=== PATIENT | male | born 1950 | race Caucasian/White ===

== ENCOUNTER 2021-07-13 14:53 | Inpatient (IN) | payer MEDICARE ==
[2021-07-13 15:28] LABS: #Eosinphils 0.1 10x3/uL (0.0-0.5); #Monocytes 1.4 10x3/uL (0.0-1.1); #Neutrophils 6.8 10x3/uL (1.5-8.4); %Basophils 0.2 % (0.0-2.0); %Eosinophils 0.5 % (0.0-6.0); %Lymphocytes 13.2 % (18.0-47.0); %Monocytes 14.8 % (0.0-10.0); %Neutrophils 71.1 % (40.0-75.0); Hemoglobin 13.6 g/dL (13.5-17.5); Mean Corpuscular Hemoglobin 30.7 pg (27.0-33.0); Mean Corpuscular Volume 95.9 fl (81.2-95.1); Mean Platelet Volume 10.5 fl (7.4-10.4); Platelet Count 175 10x3/uL (150-450); RBC Distribution Width 12.6 % (11.5-14.5); Red Blood Cell (RBC) Count 4.43 10x6/uL (4.32-5.72); White Blood Cell (WBC) Count 9.6 10x3/uL (3.5-10.5)
[2021-07-13 15:42] LABS: Acetaminophen Less than 6.0 mcg/mL (10.0-30.0); Alcohol Less than 10 mg/dL (Less than 10); Salicylate Less than 8.0 mg/dL (15.0-30.0)
[2021-07-13 15:44] LABS: ALT (SGPT) 26 U/L (8-55); AST (SGOT) 33 U/L (5-34); Albumin 4.1 g/dL (3.4-4.8); Alkaline Phosphatase 91 U/L (40-110); Anion Gap 13 mmol/L (10-20); BUN (Urea Nitrogen) 25 mg/dL (8.4-25.7); Bilirubin, Total 1.6 mg/dL (0.2-1.2); Calc. Creatinine Clearance 0 mL/min (70-130); Calcium 9.9 mg/dL (7.8-10.44); Carbon Dioxide 27 mmol/L (23-31); Chloride 105 mmol/L (98-107); Globulin 3.1 g/dL (2.4-3.5); Glucose 83 mg/dL (83-110); Potassium 3.9 mmol/L (3.5-5.1); Protein, Total 7.2 g/dL (5.8-8.1); Sodium 141 mmol/L (136-145)
[2021-07-13 16:32] LABS: Bilirubin Neg (Negative); Blood, Urine Negative (Negative); Clarity Clear (Clear); Glucose, Urine (Dipstick) Normal (Negative); Ketone, Urine 15 mg/dL (Negative); Leukocyte Negative (Negative); Nitrite Negative (Negative); Protein, Urine (Dipstick) 15 mg/dl (Neg-Trace); Urobilinogen Normal mg/dL (Less than 2)
[2021-07-13 16:41] LABS: Amphetamine Not Detected (NotDetected); Barbiturates Screen Not Detected (NotDetected); Benzodiazepine Screen Detected (NotDetected); Cocaine Metabolite Screen Not Detected (NotDetected); Methadone Not Detected (NotDetected); Methamphetamine Not Detected (NotDetected); Opiate Screen Not Detected (NotDetected); Oxycodone Screen Not Detected (NotDetected); Phencyclidine (PCP) Not Detected (NotDetected); THC/Cannabinoid Screen Not Detected (NotDetected); Tricyclic Screen Not Detected (NotDetected)
[2021-07-13 17:13] LABS: SARS-CoV-2 NAA Rapid Test Not Detected (NotDetected)
[2021-07-13] MEDS ORDERED: Lorazepam 2 MG/ML VIAL ONE (20:03)
[2021-07-14 01:04] VITALS: BMI 29.5
[2021-07-14] MEDS ORDERED: Melatonin 3 MG TAB PO SCH (01:45)
[2021-07-14] MEDS: Sodium Chloride 0.9% 1,000 ML IV SCH ×2 (01:48→17:11)
[2021-07-14] MEDS: DULoxetine 30 MG CAP PO SCH (08:48)
[2021-07-14] MEDS: Aspirin 81 mg Enteric Coated Tablet PO SCH (08:48)
[2021-07-14] MEDS: Enoxaparin Sodium 40 MG/0.4 ML SYRINGE SC SCH (08:48)
[2021-07-14] MEDS ORDERED: Oxybutynin ER 5 MG TAB PO SCH (09:00)
[2021-07-14] MEDS ORDERED: PIMAVANSERIN TARTRATE 34 MG PO SCH (09:00)
[2021-07-14] MEDS: Midodrine HCl 2.5 MG TAB PO SCH (14:13)
[2021-07-14] MEDS ORDERED: Haloperidol Lactate 5 MG/ML VIAL IM SCH (19:15)
[2021-07-14] MEDS ORDERED: Midodrine HCl 2.5 MG TAB PO SCH (21:00)
[2021-07-15] MEDS: Melatonin 3 MG TAB PO SCH ×2 (00:33→22:53)
[2021-07-15] MEDS ORDERED: Acetaminophen 500 MG TAB PO SCH (02:00)
[2021-07-15] MEDS: Midodrine HCl 2.5 MG TAB PO SCH ×2 (05:25→09:08)
[2021-07-15 07:39] LABS: #Eosinphils 0.1 10x3/uL (0.0-0.5); #Monocytes 1.3 10x3/uL (0.0-1.1); #Neutrophils 6.1 10x3/uL (1.5-8.4); %Basophils 0.3 % (0.0-2.0); %Eosinophils 1.3 % (0.0-6.0); %Lymphocytes 12.2 % (18.0-47.0); %Monocytes 14.6 % (0.0-10.0); %Neutrophils 71.3 % (40.0-75.0); Hemoglobin 15.3 g/dL (13.5-17.5); Mean Corpuscular HGB CONC 32.6 g/dL (32.0-36.0); Mean Corpuscular Hemoglobin 30.6 pg (27.0-33.0); Mean Platelet Volume 10.8 fl (7.4-10.4); Platelet Count 172 10x3/uL (150-450); RBC Distribution Width 12.2 % (11.5-14.5); White Blood Cell (WBC) Count 8.6 10x3/uL (3.5-10.5)
[2021-07-15 08:08] LABS: ALT (SGPT) 28 U/L (8-55); AST (SGOT) 41 U/L (5-34); Albumin 4.1 g/dL (3.4-4.8); Alkaline Phosphatase 94 U/L (40-110); Anion Gap 15 mmol/L (10-20); BUN (Urea Nitrogen) 15 mg/dL (8.4-25.7); Bilirubin, Direct 0.6 mg/dL (0.1-0.3); Bilirubin, Total 1.5 mg/dL (0.2-1.2); Calc. Creatinine Clearance 107 mL/min (70-130); Carbon Dioxide 27 mmol/L (23-31); Chloride 104 mmol/L (98-107); Globulin 3.6 g/dL (2.4-3.5); Glucose 97 mg/dL (83-110); Protein, Total 7.7 g/dL (5.8-8.1); Sodium 142 mmol/L (136-145)
[2021-07-15] MEDS: DULoxetine 30 MG CAP PO SCH (08:59)
[2021-07-15] MEDS: Aspirin 81 mg Enteric Coated Tablet PO SCH (08:59)
[2021-07-15] MEDS: Enoxaparin Sodium 40 MG/0.4 ML SYRINGE SC SCH (08:59)
[2021-07-15] MEDS: Fish Oil 1,000 MG CAP PO SCH (09:00)
[2021-07-15] MEDS: Sodium Chloride 0.9% 1,000 ML IV SCH (13:08)
[2021-07-15] MEDS ORDERED: Labetalol HCl 100 MG/20 ML VIAL SLOW IVP PRN (14:41)
[2021-07-15] MEDS ORDERED: Losartan 25 MG TAB PO SCH (14:45)
[2021-07-15] MEDS ORDERED: Bisacodyl 5 MG TAB PO PRN (14:47)
[2021-07-15] MEDS ORDERED: Bisacodyl 10 MG SUPP PR PRN (14:47)
[2021-07-16] MEDS: Fish Oil 1,000 MG CAP PO SCH (08:26)
[2021-07-16] MEDS: Aspirin 81 mg Enteric Coated Tablet PO SCH (08:26)
[2021-07-16] MEDS: Losartan 25 MG TAB PO SCH (08:26)
[2021-07-16] MEDS: Enoxaparin Sodium 40 MG/0.4 ML SYRINGE SC SCH (08:27)
[2021-07-16] MEDS: DULoxetine 30 MG CAP PO SCH (08:27)
[2021-07-16] MEDS: Melatonin 3 MG TAB PO SCH (21:54)
[2021-07-17] MEDS: Fish Oil 1,000 MG CAP PO SCH (11:54)
[2021-07-17] MEDS: Losartan 25 MG TAB PO SCH (11:54)
[2021-07-17] MEDS: Aspirin 81 mg Enteric Coated Tablet PO SCH (11:55)
[2021-07-17] MEDS: Enoxaparin Sodium 40 MG/0.4 ML SYRINGE SC SCH (11:55)
[2021-07-17] MEDS: DULoxetine 30 MG CAP PO SCH (11:55)
[2021-07-17] MEDS: hydrALAZINE 20 MG/ML VIAL SLOW IVP PRN (17:12)
[2021-07-17] MEDS: Melatonin 3 MG TAB PO SCH (21:20)
[2021-07-18] MEDS: Enoxaparin Sodium 40 MG/0.4 ML SYRINGE SC SCH (09:23)
[2021-07-18] MEDS: Aspirin 81 mg Enteric Coated Tablet PO SCH (09:24)
[2021-07-18] MEDS: DULoxetine 30 MG CAP PO SCH (09:24)
[2021-07-18] MEDS: Losartan 25 MG TAB PO SCH (09:24)
[2021-07-18] MEDS: Fish Oil 1,000 MG CAP PO SCH (09:24)
[2021-07-18 12:08] VITALS: BP 181/84; TEMP 98.7
[2021-07-18] MEDS: hydrALAZINE 20 MG/ML VIAL SLOW IVP PRN (12:17)
[2021-07-18] MEDS ORDERED: Acetaminophen 325 MG TAB PO PRN (12:27)
== END 2021-07-18 21:15 | DRG 56 ==
LOC: CSHERS 14:53 → CSHTELE 23:27 → OBSVTOIN 07-15 10:55
PROVIDERS: ADMIT Family Medicine; ATTEND Family Medicine
DX: G20 Parkinson's disease (principal); G92.9 Unspecified toxic encephalopathy; F02.81 Dementia in other diseases classified elsewhere, unspecified severity, with behavioral disturbance; I48.21 Permanent atrial fibrillation; G93.49 Other encephalopathy; G47.33 Obstructive sleep apnea (adult) (pediatric); I95.1 Orthostatic hypotension; Z66 Do not resuscitate; T50.905A Adverse effect of unspecified drugs, medicaments and biological substances, initial encounter; Z20.822 Contact with and (suspected) exposure to COVID-19; Z79.82 Long term (current) use of aspirin; Z79.899 Other long term (current) drug therapy; Z88.8 Allergy status to other drugs, medicaments and biological substances; Z85.46 Personal history of malignant neoplasm of prostate; Z87.891 Personal history of nicotine dependence
CPT/HCPCS: 36415; 70450; 70551; 72125; 74177; 80053; 80306; 80307; 81003; 82140; 82247; 83605; 84443; 84484; 85025; 87040; 87086; 93005; 94760; 96372; G0378; J0360; J1650; J2060; J7050; U0002